=== PATIENT | male | born 1960 | race Caucasian/White ===

== ENCOUNTER 2025-06-25 09:26 | Emergency (ER) | payer OTHER, SELFPAY ==
[2025-06-25 09:30] VITALS: BP 126/81
--- NOTE | 2025-06-25 10:07 | ED.GENMED ---
History of Present Illness
General
Chief Complaint: Abdominal Symptoms
Source: patient
Exam Limitations: none
Time Seen by Provider: 06/25/25 09:33
Nursing documentation reviewed up to this point in time: agreed with
History of Present Illness
History of Present Illness:
Patient is a 64-year-old male who presents to the emergency department for evaluation of 1 week of diarrhea. He reports intractable watery diarrhea, multiple times per day. While he states symptoms seem to be improving minimally he is still having
multiple bouts of diarrhea daily prompting visit to emergency department. He sometimes has a small amount of diarrhea leakage when walking without control.
Symptoms initially started last Tuesday evening after eating a salad for lunch which was 5 days old that he had ordered at a restaurant the previous . He states that diarrhea seems to have a very foul odor. He denies any bloody stool.
Patient denies any associated fever, chills or abdominal pain. He denies any lightheadedness, dizziness or urinary symptoms. No vomiting.
Patient denies any known sick contacts. He has not had any recent antibiotic use or hospitalizations. No recent travel.
Review of Systems
Review of Systems
Allergies reviewed?: Yes
All Other Systems: ROS reviewed and negative except as documented in HPI and ROS
Phy Exam
Physical Exam
Physical Exam:
Vitals: Vital signs are stable. Afebrile
General: Patient is well appearing, no acute distress
Skin: Warm and dry, no rashes or lesions
Head: Normocephalic, atraumatic
Eyes: Sclera nonicteric. EOMs intact. No nystagmus.
Throat: Protecting airway
Neck: Normal ROM, no cervical spine tenderness, no meningismus
Cardiac: Regular rate and rhythm, no murmurs.
Pulm: Normal respiratory effort, no wheezes, rales, rhonchi heard on exam
Abdomen: Abdomen soft and nontender. No rebound tenderness or guarding.
Extremities: No evidence of cyanosis or edema
Neuro: AAOx3. Grossly intact.
Psychiatric: Normal affect.
Course
Orders/Labs/Results
Orders:
Orders
06/25/25 10:02
0.9% Sodium Chloride 1000 ml [Nss] 1,000 ml IV BOLUS
06/25/25 10:31
Complete Blood Count/With Diff Urgent
Comprehensive Metabolic Panel Urgent
Lipase Urgent
Magnesium Urgent
06/25/25 11:05
STOOL [C difficile Antigen & Toxins] Urgent
AMINATA Source: Feces/Stool
Specimen Description:
Date Specimen was Collected: 06/25/25
Time Specimen was Collected: 11:04
Stool Culture Urgent
AMINATA Source: Feces/Stool
Specimen Description:
Date Specimen was Collected: 06/25/25
Time Specimen was Collected: 11:04
06/25/25 11:17
CT Abd/pelvis W Iv Cont Urgent
Comment:
Reason For Exam: Intractable diarrhea, anorexia
06/25/25 11:34
Urinalysis Reflex To Culture Urgent
Date Specimen was Collected: 06/25/25
Time Specimen was Collected: 11:33
Abnormal Lab Results
06/25/25
10:31
RBC 3.87 L 10^6/uL
(4.70-6.10)
Hgb 12.7 L g/dL
(13.0-18.0)
Hct 36.6 L %
(39.0-52.0)
MCV 94.6 H fL
(80.0-94.0)
MCH 32.8 H pg
(27.0-31.0)
Abs Immat Gran (auto) 0.1 H 10^3/uL
(0-0.05)
Absolute Monos (auto) 1.3 H 10^3/uL
(0.1-0.6)
Immature Gran % 0.8 H %
(0-0.5)
Lymphocytes % 16.7 L %
(20.5-51.1)
Monocytes % 18.4 H %
(1.7-9.3)
Sodium 131 L mmol/L
(135-145)
BUN 6 L mg/dl
(9-20)
Glucose 103 H mg/dl
(70-99)
AST 71 H U/L
(17-59)
Lipase 592 H U/L
(23-300)
06/25/25 10:31
06/25/25 10:31
Vital Signs
Initial and Last Documented VS:
Initial Vital Signs
Temp Pulse Resp BP Pulse Ox
98.1 F 98 18 126/81 98
06/25/25 09:30 06/25/25 09:30 06/25/25 09:30 06/25/25 09:30 06/25/25 09:30
Last Documented Vital Signs
Temp Pulse Resp BP Pulse Ox
98.4 F 86 18 144/86 98
06/25/25 10:19 06/25/25 13:56 06/25/25 10:19 06/25/25 13:53 06/25/25 13:54
MDM/Problems Addressed
Differential Diagnosis Includes:
Not limited to: Viral infection, colitis, food poisoning, diverticulitis, stercoral colitis, acute dehydration, etc.
MDM/Problems Addressed:
64-year-old male with 1 week of nonbloody diarrhea. No associated fever, chills, abdominal pain, or urinary symptoms. No known sick contacts or exposures. Vitals and physical exam as above.
Differential broad. Possible viral gastritis, food poisoning/bacterial colitis, diverticulitis, acute dehydration, etc.
ED plan: Labs, stool studies/C. difficile, UA, CT scan. Will give IV fluids and reassess
Update: Labs reveal mild elevation in lipase and AST�possibly secondary to dehydration. Otherwise unremarkable. Urine does not appear infected. C. difficile testing is negative. CT scan reveals findings of proctitis. I did discuss incidental
finding of angiodysplasia of colon and advised follow-up outpatient. Patient has no current evidence of GI bleeding.
Ultimately�patient has remained well-appearing throughout duration of stay in the emergency department. He has been tolerating oral intake without any problem. He has not had any bloody stools or fevers�will plan to hold antibiotics pending stool
culture. Advised patient to stay well-hydrated follow bland diet. Strict return precautions discussed with patient and . Patient comfortable with plan.
Chronic conditions affecting care:
N/A
Acute Exacerbation and/or Progression of Chronic Illness:
N/A
*Radiology
Radiology exam reviewed: radiology read reviewed
*Pulse Oximetry
SaO2: 98
Oxygen Mode of Delivery: Room air
Patient hypoxic: no
*EKG
Interpreted by ED Provider?: NA
*Manager Education Interpretation
Rate: Manager Education- N/A
*Critical Care Note
Total Time (30-74mins, 75-104mins- exclusive of procedures): Not Applicable
ED Attending Note
-
Portions of this chart may have been created with voice recognition software.� Occasional wrong word or��sound alike� substitutions may have occurred due to the inherent limitations of voice recognition software.
Discharge Plan
Departure
Patient Disposition: Home (Routine Discharge)
Date of Disposition: 06/25/25
Time of Disposition: 13:59
Patient with high blood pressure during this ER visit?: Yes
Condition: Good
Discharge Problem:
Proctitis, Diarrhea
Instructions: Diarrhea in teens and adults, Proctitis, [place] Diet, BLOOD PRESSURE
Referrals:
Avinash Vasquez DO [Family Provider, Family Practice] - Follow up in 2-3 days
Activity Restrictions/Additional Instructions:
RETURN TO THE EMERGENCY DEPARTMENT ANY FEVER, CHILLS, INTRACTABLE DIARRHEA OR SIGNS OF SEVERE DEHYDRATION, ABDOMINAL PAIN, VOMITING, BLOODY STOOLS OR WEAKNESS, OR ANY OTHER CONCERNS
- Your lab work revealed a mildly elevated liver test, AST and elevated lipase�this may be secondary to dehydration. Otherwise your labs were unremarkable. Your urine showed no evidence of infection. Your C. difficile testing was negative. Your
CT scan showed findings of proctitis. You were also found to have some prominent blood vessels in your colon. Please continue to follow this with your primary care
- Please continue to treat your symptoms supportively at home with staying well-hydrated and bland diet.
- We will contact you if your stool studies result positive.
- Please follow-up with your primary care doctor for further evaluation/management to ensure that your symptoms are improving.
Monitor your symptoms closely and return to the emergency department with any acute worsening/new symptoms or any other concerns
Interventions
Interventions:
*Risk Screen - Suicide Last Done: 06/25/25 09:30
*General Assessment Last Done: 06/25/25 09:30
*Neglect/Abuse Screening Last Done: 06/25/25 10:21
*ED- Fall Risk Assessment Last Done: 06/25/25 10:20
*ED COVID-19 Vaccine History Last Done: 06/25/25 10:20
*ED Influenza Vaccine History Last Done: 06/25/25 10:20
*Nursing Disposition Last Done: 06/25/25 14:07
WD-Agwbys-Kgzdjlrvlv Assessment Last Done: 06/25/25 10:37
Discharge Date and Time
Discharge Date/Time: 06/25/25 14:08
Print Language: IRISH
[2025-06-25 10:13] VITALS: BP 119/79
[2025-06-25 10:19] VITALS: BP 119/79; BMI 21.1
[2025-06-25] MEDS: NSS 1000 IV (10:32)
[2025-06-25 10:43] LABS: Hematocrit 36.6 % (39.0-52.0); Hemoglobin 12.7 g/dL (13.0-18.0); Mean Corp Hgb Conc. 34.7 g/dL (33.0-37.0); Mean Corpuscular Volume 94.6 fL (80.0-94.0); Nucleated Red Blood Cells % 0 % (-); Platelet Count 354 10^3/uL (130-400); Red Cell Dist. Width 11.9 % (11.5-14.5)
[2025-06-25 11:03] LABS: ALT (SGPT) 46 U/L (0-50); AST (SGOT) 71 U/L (17-59); Albumin 4.1 g/dl (3.5-5.0); Alkaline Phosphatase 60 U/L (38-126); Blood Urea Nitrogen 6 mg/dl (9-20); Calcium 9.1 mg/dl (8.4-10.2); Carbon Dioxide 25 mmol/L (22-30); Chloride 99 mmol/L (98-107); Estimated Creatinine Clearance 106 ml/min; Glucose 103 mg/dl (70-99); Lipase 592 U/L (23-300); Magnesium 2.0 mg/dl (1.6-2.3); Potassium 4.3 mmol/L (3.5-5.1); Sodium 131 mmol/L (135-145); Total Protein 7.4 g/dl (6.3-8.2); eGFR > 60.00
[2025-06-25 11:43] LABS: Urine Character Clear (Clear)
[2025-06-25 12:00] VITALS: BP 149/88
[2025-06-25 13:53] VITALS: BP 144/86
== END 2025-06-25 14:08 | disposition home or self-care (01) ==
LOC: EMR 09:26
PROVIDERS: Physician Assistant; EMERGENCY PHYSICIAN Student in an Organized Health Care Education/Training Program; FAMILY PHYSICIAN Family Medicine
DX: K62.89 Other specified diseases of anus and rectum (principal); R19.7 Diarrhea, unspecified
CPT/HCPCS: 96360; 99284; 74177; 80053; 81003; 83690; 83735; 85025; 87045; 87046; 87324; 87427; 87449; Q9967